=== PATIENT | female | born 1930 | race Caucasian/White ===

== ENCOUNTER 2017-01-23 09:53 | Emergency (ER) | payer OTHER ==
--- NOTE | 2017-01-23 11:20 | DIAGNOSTIC IMAGING REPORT ---
PROCEDURE: CT HEAD WITHOUT CONTRAST INDICATION: NAUSEA TECHNIQUE: Axial CT images were acquired through the head. Coronal and sagittal reformations were created. COMPARISON: Head CT 04/17/2011 FINDINGS: No intracranial hemorrhage or extraaxial fluid collections. Ventricles are normal in size, shape and position. There is no mass, mass effect or midline shift. Moderate periventricular small-vessel ischemic disease. The calvarium is intact. The paranasal sinuses and mastoid air cells are normally aerated. The extracranial soft tissues and orbits are normal. IMPRESSION: 1. No CT evidence of acute intracranial process. 2. Moderate periventricular small-vessel ischemic disease. 3. Findings discussed with Dr. Longoria at 11:[address] scans at this facility use dose modulation, iterative reconstruction, and/or weight-based dosing when appropriate to reduce radiation dose to as low as reasonably achievable.
--- NOTE | 2017-01-23 11:55 | ED CLINICAL REPORT ---
Clinical Report - Physicians/Mid Levels [facility] [address] [place] [address] 01/23/2017 9:58 Patient: CRISTINA BONILLA Time Seen: 10:05; initial patient contact. Arrived- By private vehicle. Historian- patient. HISTORY OF PRESENT ILLNESS Chief Complaint: HEADACHE. It is described as pressure. Located in the frontal region. No neck pain. Not located in the facial region. At its maximum, severity described as mild. When seen in the E.D., severity described as mild. Modifying factors: relieved by nothing. Not worsened by anything. The patient has had blurred vision (Chronic and stable from macular degeneration.). No preceding symptoms, photophobia, associated nausea, numbness or weakness. No vomiting. Similar symptoms previously: None. Recent medical care: Not recently seen/assessed. REVIEW OF SYSTEMS No fever, muscle aches, ear pain, sore throat or chest pain. No difficulty breathing, cough or skin rash. She has had sinus pressure. All systems otherwise negative, except as recorded above. PAST HISTORY GERD. ADDITIONAL SURGERIES: Cholecystectomy. Hysterectomy. Right hip ORIF. Medications: Albuterol Sulfate HFA Inhalation. PriLOSEC Oral. Allergies: Codine. Oxycodone HCl. SOCIAL HISTORY Former smoker. No alcohol use or drug use. ADDITIONAL NOTES The nursing notes have been reviewed. PHYSICAL EXAM Vital Signs: 01/23/2017 10:08 BP: 148/71. HR: 65. RR: 20. O2 saturation: 96%. Temp: 98 F. Pain level now: 11/18. Have been reviewed. Hypertensive. Heart rate normal. Respiratory rate normal. Temperature normal. Oxygen saturation normal. Appearance: Alert. No acute distress. Head: Tenderness present to percussion/palpation of the sinuses: moderate right and left frontal tenderness. Eyes: Pupils equal, round and reactive to light. Eyes normal inspection. ENT: Ears normal. Pharynx normal. Neck: Normal inspection. Neck supple. No lymphadenopathy. CVS: Normal heart rate and rhythm. Heart sounds normal. Respiratory: No respiratory distress. Breath sounds normal. Skin: Skin warm and dry. Normal skin color. No rash. Neuro: Oriented X 3. Alert. Mood/affect normal. Speech normal. Cranial nerves normal (as tested). No cerebellar findings. No motor deficit. No sensory deficit. LABS, X-RAYS, AND EKG CT Head: (1. No CT evidence of acute intracranial process. 2. Moderate periventricular small-vessel ischemic disease.). Head CT performed without contrast. The study was interpreted by the radiologist and discussed with the radiologist. Laboratory Tests: CBC w Diff: (BRIANA: 01/23/2017 10:30) ( [facility] [place] 11:24) Final results Test Result Flag Units (Reference) WHITE BLOOD COUNT 5.7 K/uL (4.5-11.5) RED BLOOD COUNT 4.21 M/uL (4.00-5.20) HEMOGLOBIN 12.1 gm/dL (12.0-16.0) HEMATOCRIT 36.7 % (36.0-46.0) MEAN CELL VOLUME 87 fL (80-100) MEAN CORPUSCULAR HGB 29 pg (26-34) MEAN CORPUSCULAR HGB CONC 33 g/dL (31-37) RED CELL DISTRIBUTION WIDTH 14.6 % (11.6-14.8) PLATELET COUNT 87 L K/uL (150-400) NEUTROPHIL % 50.5 % (50-75) LYMPH % 35.8 % (25-40) MONO % 10.0 % (3-14) EOSINOPHIL % 2.2 % (0-4) BASOPHIL % 1.5 % (0-2) CMP: (BRIANA: 01/23/2017 10:30) ( [facility] [place] 10:59) Final results Test Result Flag Units (Reference) GLUCOSE 89 mg/dL (70-110) BUN 12 mg/dL (7-18) CREATININE 0.7 mg/dL (0.6-1.3) Estimated GFR >60 mL/min Estimated GFR- >60 mL/min Note: Persistent reduction over 3 months in eGFR<60 mL/min/1.73 m2 defines CKD. Patients with eGFR values>=60 mL/min/1.73 m2 may also have CKD if evidence ofpersistent proteinuria. Additional information may be foundat www.[email or web address].org. SODIUM 140 mmol/L (136-145) POTASSIUM 4.2 mmol/L (3.5-5.1) CHLORIDE 105 mmol/L (98-107) CARBON DIOXIDE 29 mmol/L (21-32) CALCIUM 9.1 mg/dL (8.5-10.1) TOTAL PROTEIN 7.0 g/dL (6.4-8.2) ALBUMIN 3.5 g/dL (3.3-5.0) BILIRUBIN, TOTAL 0.7 mg/dL (0.0-1.0) ALKALINE PHOSPHATASE 103 U/L (46-116) AST (SGOT) 24 U/L (15-37) ALT (SGPT) 19 U/L (12-78) . PROGRESS AND PROCEDURES Disposition: Discharged home in good condition. Condition: good. CLINICAL IMPRESSION Acute frontal sinusitis INSTRUCTIONS Your Current Medications: CONTINUE TAKING THE FOLLOWING MEDICATIONS: Albuterol Sulfate HFA Inhalation. PriLOSEC Oral. Prescription Medications: Flonase nasal spray: 2 sprays to each nostril daily. Dispense one (1) unit. No refills. Substitution is permissible OTC Medications: Afrin nasal spray (Available over the counter): 1 spray to each nostril twice daily for 2 days, for congestion. Follow-up: Follow up with your doctor in about four days. Call for an appointment. Screening today revealed the patient's blood pressure to be in the hypertensive range. The patient should follow up with a primary care provider for blood pressure management. (Electronically signed by Rudy Lnogoria Dr. 01/24/2017 8:51)
--- NOTE | 2017-01-23 11:55 | ED NURSING NOTES ---
Clinical Report - Nurses [facility] [address] [place] [address] 01/23/2017 9:58 Patient: CRISTINA BONILLA TRIAGE Triage time 10:00. --10:05 Madyson Pardo R.N. Triage time 1000. Acuity: LEVEL 3. Chief Complaint: (Headache & dizziness, onset 2 days ago, sent by PCP. Negative FAST.). SEPSIS SCREEN: Sepsis Screen. Negative (no infection suspected/documented). VICKY COMA SCORE: Vicky Coma Scale: 15- eyes open spontaneously (4); best verbal response- oriented x 4 (5); best motor response- obeys commands (6). --10:19 Eddie Saucedo R.N. 10:08 01/23/17. BP: 148/71 (regular adult cuff) taken on the left arm, while lying. HR: 65. RR: 20. O2 saturation: 96% on room air. Temp: 98 F (oral). Pain level now: 4/10. Additional comments: headache. --10:19 Eddie Saucedo R.N. Weight: 74.8 kg stated. Height/Length: 67 inches Per Patient. BMI: 25.9. --10:18 Eddie Saucedo R.N. Medications PriLOSEC Oral. --10:13 Eddie Saucedo R.N. Albuterol Sulfate HFA Inhalation. --10:13 Eddie Saucedo R.N. Allergies Codine. Oxycodone HCl. --10:10 Eddie Saucedo R.N. History Arrived by private vehicle, and in wheelchair. Historian: patient and family. Accompanied by (caregiver). ( Pt normally walks with a 4 wheel wheeled walker). SOCIAL HX: Former smoker, end date 1986 (cigarette). No alcohol use or drug use. ABUSE ASSESSMENT: No report of abuse. --10:19 Eddie Saucedo R.N. PROBLEMS: GERD. --10:13 Eddie Saucedo R.N. ADDITIONAL SURGERIES: Cholecystectomy. Hysterectomy. Right hip ORIF. --10:13 Eddie Saucedo R.N. Interventions ID band on patient. To treatment room. --10:19 Eddie Saucedo R.N. NURSING PROGRESS NOTES 10:30 01/23/2017 Site #1 started via IV in the right antecubital space with an 20g angiocath, with aseptic technique and good blood return; one attempt. Blood drawn: rainbow set. Labeled in the presence of the patient and sent to the lab. Saline lock flushed with 10 mL saline. --10:42 Eddie Saucedo R.N. Patient gowned. Head of bed elevated. Reassurance given. Two patient identifiers checked. Call light placed in reach. Bed placed in lowest position. Brakes of bed on. Patient ready for evaluation- chart flagged. --10:42 Eddie Saucedo R.N. ( Pt in CT). --10:55 Eddie Saucedo R.N. 11:11 01/23/2017 Acetaminophen (APAP) PO Tablets 650 mg given. Allergies verified and confirmed 5 rights. --11:11 Eddie Saucedo R.N. DISPOSITION / DISCHARGE 12:00 01/23/2017 Site #1 removed upon discharge. Bandage applied. --12:00 Eddie Saucedo R.N. Departure time: 1202. Condition at departure: unchanged and stable. No learning barriers present. Discharge instructions provided and reviewed with the patient. Reviewed medication(s). Patient verbalized understanding. Written instructions provided in Micronesian. The patient was discharged by the physician. She was discharged home and accompanied by caregiver. She left the Emergency Department in a wheelchair and via private vehicle. Driving (caregiver). --12:02 Eddie Saucedo R.N. 11:52 01/23/17. BP: 150/65 (regular adult cuff) taken on the left arm, while sitting. HR: 67. RR: 20. O2 saturation: 98% on room air. Temp: 98 F (oral). Pain level now: 11/18. --12:02 Eddie Saucedo R.N. Locked/Released at 01/23/2017 12:31 by Eddie Saucedo R.N.
--- NOTE | 2017-01-23 11:55 | ED ORDER SUMMARY ---
..... Patient: CRISTINA BONILLA OrderSheet [facility] VisitID: [id number] [place] [address] 87y, F Registration Date/Time: 01/23/2017 ORDER SHEET Weight: 74.8 kg (stated) Allergies: Codine, Oxycodone HCl GENERAL ORDERS: CT Head wo Cont Urgent (10:42 01/23/2017 Deedee Pollard) (Ack 10:43 TBergley) (11:01 TBergley) CBC w Diff Urgent (10:42 01/23/2017 Deedee Pollard) (10:42 TBergley) CMP Urgent (10:42 01/23/2017 Deedee Pollard) (10:42 TBergley) UA-Culture if indicated Urgent (10:42 01/23/2017 Deedee Pollard) (Ack 10:43 TBergley) (12:30 Shital R.N.) (Cancelled: Unable to [id number] Tiffanyeck R.N.) MEDICATION ORDERS: Acetaminophen PO 650 mg (NOW) (10:42 01/23/2017 Deedee Pollard) (11:11 Tiffanyeck R.N.) IV FLUIDS: IV Saline Lock (10:42 01/23/2017 Deedee Pollard) (10:50 Shital R.N.) ORDER SHEET NOTES: [Electronically signed by Eddie Saucedo R.N. (12:31 01/23/2017)] [Electronically signed by Rudy Longoria Dr. (08:51 01/24/2017)] [Electronically locked/signed by Eddie Saucedo R.N. (12:31 01/23/2017)]
--- NOTE | 2017-01-23 11:55 | ED CLINICAL REPORT ---
Clinical Report - Physicians/Mid Levels [facility] [address] [place] [address] 01/23/2017 9:58 Patient: CRISTINA BONILLA Time Seen: 10:05; initial patient contact. Arrived- By private vehicle. Historian- patient. HISTORY OF PRESENT ILLNESS Chief Complaint: HEADACHE. It is described as pressure. Located in the frontal region. No neck pain. Not located in the facial region. At its maximum, severity described as mild. When seen in the E.D., severity described as mild. Modifying factors: relieved by nothing. Not worsened by anything. The patient has had blurred vision (Chronic and stable from macular degeneration.). No preceding symptoms, photophobia, associated nausea, numbness or weakness. No vomiting. Similar symptoms previously: None. Recent medical care: Not recently seen/assessed. REVIEW OF SYSTEMS No fever, muscle aches, ear pain, sore throat or chest pain. No difficulty breathing, cough or skin rash. She has had sinus pressure. All systems otherwise negative, except as recorded above. PAST HISTORY GERD. ADDITIONAL SURGERIES: Cholecystectomy. Hysterectomy. Right hip ORIF. Medications: Albuterol Sulfate HFA Inhalation. PriLOSEC Oral. Allergies: Codine. Oxycodone HCl. SOCIAL HISTORY Former smoker. No alcohol use or drug use. ADDITIONAL NOTES The nursing notes have been reviewed. PHYSICAL EXAM Vital Signs: 01/23/2017 10:08 BP: 148/71. HR: 65. RR: 20. O2 saturation: 96%. Temp: 98 F. Pain level now: 11/18. Have been reviewed. Hypertensive. Heart rate normal. Respiratory rate normal. Temperature normal. Oxygen saturation normal. Appearance: Alert. No acute distress. Head: Tenderness present to percussion/palpation of the sinuses: moderate right and left frontal tenderness. Eyes: Pupils equal, round and reactive to light. Eyes normal inspection. ENT: Ears normal. Pharynx normal. Neck: Normal inspection. Neck supple. No lymphadenopathy. CVS: Normal heart rate and rhythm. Heart sounds normal. Respiratory: No respiratory distress. Breath sounds normal. Skin: Skin warm and dry. Normal skin color. No rash. Neuro: Oriented X 3. Alert. Mood/affect normal. Speech normal. Cranial nerves normal (as tested). No cerebellar findings. No motor deficit. No sensory deficit. LABS, X-RAYS, AND EKG CT Head: (1. No CT evidence of acute intracranial process. 2. Moderate periventricular small-vessel ischemic disease.). Head CT performed without contrast. The study was interpreted by the radiologist and discussed with the radiologist. Laboratory Tests: CBC w Diff: (BRIANA: 01/23/2017 10:30) ( [facility] [place] 11:24) Final results Test Result Flag Units (Reference) WHITE BLOOD COUNT 5.7 K/uL (4.5-11.5) RED BLOOD COUNT 4.21 M/uL (4.00-5.20) HEMOGLOBIN 12.1 gm/dL (12.0-16.0) HEMATOCRIT 36.7 % (36.0-46.0) MEAN CELL VOLUME 87 fL (80-100) MEAN CORPUSCULAR HGB 29 pg (26-34) MEAN CORPUSCULAR HGB CONC 33 g/dL (31-37) RED CELL DISTRIBUTION WIDTH 14.6 % (11.6-14.8) PLATELET COUNT 87 L K/uL (150-400) NEUTROPHIL % 50.5 % (50-75) LYMPH % 35.8 % (25-40) MONO % 10.0 % (3-14) EOSINOPHIL % 2.2 % (0-4) BASOPHIL % 1.5 % (0-2) CMP: (BRIANA: 01/23/2017 10:30) [place] [facility] [place] 10:59[place] Final results Test Result Flag Units (Reference) GLUCOSE 89 mg/dL (70-110) BUN 12 mg/dL (7-18) CREATININE 0.7 mg/dL (0.6-1.3) Estimated GFR >60 mL/min Estimated GFR- >60 mL/min Note: Persistent reduction over 3 months in eGFR<60 mL/min/1.73 m2 defines CKD. Patients with eGFR values>=60 mL/min/1.73 m2 may also have CKD if evidence ofpersistent proteinuria. Additional information may be foundat www.kidney.org. SODIUM 140 mmol/L (136-145) POTASSIUM 4.2 mmol/L (3.5-5.1) CHLORIDE 105 mmol/L (98-107) CARBON DIOXIDE 29 mmol/L (21-32) CALCIUM 9.1 mg/dL (8.5-10.1) TOTAL PROTEIN 7.0 g/dL (6.4-8.2) ALBUMIN 3.5 g/dL (3.3-5.0) BILIRUBIN, TOTAL 0.7 mg/dL (0.0-1.0) ALKALINE PHOSPHATASE 103 U/L (46-116) AST (SGOT) 24 U/L (15-37) ALT (SGPT) 19 U/L (12-78) . PROGRESS AND PROCEDURES Disposition: Discharged home in good condition. Condition: good. CLINICAL IMPRESSION Acute frontal sinusitis INSTRUCTIONS Your Current Medications: CONTINUE TAKING THE FOLLOWING MEDICATIONS: Albuterol Sulfate HFA Inhalation. PriLOSEC Oral. Prescription Medications: Flonase nasal spray: 2 sprays to each nostril daily. Dispense one (1) unit. No refills. Substitution is permissible OTC Medications: Afrin nasal spray (Available over the counter): 1 spray to each nostril twice daily for 2 days, for congestion. Follow-up: Follow up with your doctor in about four days. Call for an appointment. Screening today revealed the patient's blood pressure to be in the hypertensive range. The patient should follow up with a primary care provider for blood pressure management. (Electronically signed by Rudy Longoria Dr. 01/24/2017 8:51)
--- NOTE | 2017-01-23 11:55 | ED ORDER SUMMARY ---
..... Patient: CRISTINA BONILLA OrderSheet [facility] VisitID: [id number] [place] [address] 87y, F Registration Date/Time: 01/23/2017 ORDER SHEET Weight: 74.8 kg (stated) Allergies: Codine, Oxycodone HCl GENERAL ORDERS: CT Head wo Cont Urgent (10:42 01/23/2017 Deedee Pollard) (Ack 10:43 TBergley) (11:01 TBergley) CBC w Diff Urgent (10:42 01/23/2017 Deedee Pollard) (10:42 TBergley) CMP Urgent (10:42 01/23/2017 Deedee Pollard) (10:42 TBergley) UA-Culture if indicated Urgent (10:42 01/23/2017 Deedee Pollard) (Ack 10:43 TBergley) (12:30 Shital R.N.) (Cancelled: Unable to [id number]:31 Tiffanyeck R.N.) MEDICATION ORDERS: Acetaminophen PO 650 mg (NOW) (10:42 01/23/2017 Deedee Pollard) (11:11 Tiffanyeck R.N.) IV FLUIDS: IV Saline Lock (10:42 01/23/2017 Deedee Pollard) (10:50 Shital R.N.) ORDER SHEET NOTES: [Electronically signed by Eddie Saucedo R.N. (12:31 01/23/2017)] [Electronically signed by Rudy Longoria Dr. (08:51 01/24/2017)] [Electronically locked/signed by Eddie Saucedo R.N. (12:31 01/23/2017)]
--- NOTE | 2017-01-24 08:51 | ED DISCHARGE INSTRUCTIONS ---
Patient: CRISTINA BONILLA General Instructions [facility] VisitID: [id number] [place] [address] 87y, F Registration Date/Time: 01/23/2017 Acute frontal sinusitis INSTRUCTIONS Your Current Medications: CONTINUE TAKING THE FOLLOWING MEDICATIONS: Albuterol Sulfate HFA Inhalation. PriLOSEC Oral. Prescription Medications: Flonase nasal spray: 2 sprays to each nostril daily. Dispense one (1) unit. No refills. Substitution is permissible OTC Medications: Afrin nasal spray (Available over the counter): 1 spray to each nostril twice daily for 2 days, for congestion. Follow-up: Follow up with your doctor in about four days. Call for an appointment. Screening today revealed the patient's blood pressure to be in the hypertensive range. The patient should follow up with a primary care provider for blood pressure management. ADDITIONAL INFORMATION Sinusitis [No Abx Tx] The sinuses are air-filled spaces within the bones of the face. They connect to the inside of the nose. Sinusitis is an inflammation of the tissue lining the sinus cavity. Sinus inflammation can occur during a cold or hay-fever (allergies to pollens and other particles in the air) and cause symptoms of sinus congestion and fullness and perhaps a low-grade fever. This does not require antibiotic treatment. Home Care: Drink plenty of water, hot tea, and other liquids to stay well hydrated. This thins the mucus and promotes sinus drainage. Apply heat to the painful areas of the face. Use a towel soaked in hot water. Or, porcelain technician the shower and direct the hot spray onto your face. This is a good way to inhale warm water vapor and get heat on your face at the same time. (Cover your mouth and nose with your hands so you can still breathe as you do this.) Use a vaporizer with products such as Vicks VapoRub (contains menthol) at night. Suck on peppermint, menthol or eucalyptus hard candies during the day. An expectorant containing guaifenesin (such as Robitussin), helps to thin the mucus and promote drainage from the sinuses. Twji-fkd-hdoxkts decongestants may be used unless a similar medicine was prescribed. Nasal sprays work the fastest. Use one that contains phenylephrine (Jared-synephrine, Sinex and others) or oxymetazoline (Afrin). First blow the nose gently to remove mucus, then apply the drops. Do not use these medicines more often than directed on the label or for more than three days or symptoms may worsen. You may also use tablets containing pseudoephedrine (Sudafed). Many sinus remedies combine ingredients, which may increase side effects. Read the labels or ask the pharmacist for help. NOTE: Persons with high blood pressure should not use decongestants. They can raise blood pressure. Antihistamines are useful if allergies are a cause of your sinusitis. The mildest one is chlorpheniramine (available without a prescription). The dose for adults is 8-12mg three times a day. [NOTE: Do not use chlorpheniramine if you have glaucoma or if you are a man with trouble urinating due to an enlarged prostate.] Claritin (loratidine) is an antihistamine that causes less drowsiness and is a good alternative for daytime use. When allergies are the cause for sinusitis, a saline nasal rinse may give relief. Saline nasal rinse reduces swelling and clears excess mucus. This allows sinuses to drain. Pre-packaged kits are available at most drug stores. These contain pre-mixed salt packets and an irrigation device. You may use acetaminophen (Tylenol) or ibuprofen (Motrin, Advil) to control pain, unless another pain medicine was prescribed. [ NOTE: If you have chronic liver or kidney disease or ever had a stomach ulcer, talk with your doctor before using these medicines.] (Aspirin should never be used in anyone under 18 years of age who is ill with a fever. It may cause severe liver damage.) Follow Up with your doctor or this facility in one week or as instructed by our staff if not improving. Get Prompt Medical Attention if any of the following occur: Green or yellow drainage from the nose or into the back of the throat (post-nasal drip) Worsening sinus pain or headache Stiff neck Unusual drowsiness, confusion or not acting like your normal self Swelling of the forehead or eyelids Vision problems including blurred or double vision Fever of 100.4F (38C) or higher, or as directed by your healthcare provider Seizure Fluticasone Propionate Nasal spray, solution What is this medicine? FLUTICASONE (floo TIK a sone) is a corticosteroid. It helps decrease inflammation in your nose. This medicine is used to treat the symptoms of allergies like sneezing, itching, and runny or stuffy nose. How should I use this medicine? This medicine is for use in the nose. Follow the directions on your prescription label. This medicine works best if used regularly. Do not use more often than directed. Make sure that you are using your nasal spray correctly. Ask you doctor or health care provider if you have any questions. Talk to your head paper tester regarding the use of this medicine in children. While this drug may be prescribed for children as young as 4 years old for selected conditions, precautions do apply. What side effects may I notice from receiving this medicine? Side effects that you should report to your doctor or health healthcare educator as soon as possible: allergic reactions like skin rash, itching or hives, swelling of the face, lips, or tongue changes in vision flu-like symptoms white patches or sores in the mouth or nose Side effects that usually do not require medical attention (report to your doctor or health healthcare educator if they continue or are bothersome): burning or irritation inside the nose or throat cough headache nosebleed unusual taste or smell What may interact with this medicine? ketoconazole metyrapone some medicines for HIV vaccines What if I miss a dose? If you miss a dose, use it as soon as you remember. If it is almost time for your next dose, use only that dose and continue with your regular schedule. Do not use double or extra doses. Where should I keep my medicine? Keep out of the reach of children. Store at room temperature between 15 and 30 degrees C (59 and 86 degrees F). Throw away any unused medicine after the expiration date. What should I tell my health care provider before I take this medicine? They need to know if you have any of these conditions: infection, like tuberculosis, herpes, or fungal infection recent surgery on nose or sinuses taking corticosteroid by mouth an unusual or allergic reaction to fluticasone, steroids, other medicines, foods, dyes, or preservatives or trying to get breast-feeding What should I watch for while using this medicine? Visit your doctor or health healthcare educator for regular checks on your progress. Some symptoms may improve within 12 hours after starting use. Check with your doctor or health healthcare educator if there is no improvement in your condition after 3 weeks of use. Do not come in contact with people who have chickenpox or the measles while you are taking this medicine. If you do, call your doctor right away. You have been given the following additional information: Sinusitis, No Abx Fluticasone Propionate Nasal spray, solution (Electronically signed by Rudy Longoria Dr. 01/24/2017 8:51)
--- NOTE | 2017-01-24 08:51 | ED MAR SUMMARY ---
..... Medication Administration Record [facility] [address] [place] [address] Patient: CRISTINA BONILLA Visit ID: [id number] 87y, F Weight: 74.8 kg Height/Length: 67 in BMI: 25.9 ALLERGIES: Codine, Oxycodone HCl Given 11:11 01/23/2017 Eddie Saucedo R.N. Medication Administered: ACETAMINOPHEN [PO] (APAP), Dose: 650 mg Tablets PO. Medication Ordered: Acetaminophen PO 650 mg (NOW).
--- NOTE | 2017-01-24 08:51 | ED MED RECONCILIATION SUMMARY ---
Patient: CRISTINA BONILLA Medication Reconciliation Report [facility] VisitID: [id number] [place] [address] 87y, F Registration Date/Time: 01/23/2017 Weight: 74.8 kg Height/Length: 67 in. BMI: 25.9 ALLERGIES: Codine, Oxycodone HCl The patient's Home Medications are listed below: CONTINUE TAKING THE FOLLOWING MEDICATIONS: Albuterol Sulfate HFA Inhalation PriLOSEC Oral The source(s) of the original Home Medication information: Not obtained. The following Medications were given to the patient in the Emergency Department: Acetaminophen [PO] PO 650 mg, administered: 01/23/2017 11:11:00 AM The following Medications were prescribed to the patient: Afrin nasal spray (Available over the counter): 1 spray to each nostril twice daily for 2 days, for congestion. -- Rudy Longoria Dr. Flonase nasal spray: 2 sprays to each nostril daily. Dispense one (1) unit. No refills. Substitution is permissible -- Rudy Longoria Dr.
--- NOTE | 2017-01-24 08:51 | ED MAR SUMMARY ---
..... Medication Administration Record [facility] [address] [place] [address] Patient: CRISTINA BONILLA Visit ID: [id number] 87y, F Weight: 74.8 kg Height/Length: 67 in BMI: 25.9 ALLERGIES: Codine, Oxycodone HCl Given 11:11 01/23/2017 Eddie Saucedo R.N. Medication Administered: ACETAMINOPHEN [PO] (APAP), Dose: 650 mg Tablets PO. Medication Ordered: Acetaminophen PO 650 mg (NOW).
--- NOTE | 2017-01-24 08:51 | ED MED RECONCILIATION SUMMARY ---
Patient: CRISTINA BONILLA Medication Reconciliation Report [facility] VisitID: [id number] [place] [address] 87y, F Registration Date/Time: 01/23/2017 Weight: 74.8 kg Height/Length: 67 in. BMI: 25.9 ALLERGIES: Codine, Oxycodone HCl The patient's Home Medications are listed below: CONTINUE TAKING THE FOLLOWING MEDICATIONS: Albuterol Sulfate HFA Inhalation PriLOSEC Oral The source(s) of the original Home Medication information: Not obtained. The following Medications were given to the patient in the Emergency Department: Acetaminophen [PO] PO 650 mg, administered: 01/23/2017 11:11:00 AM The following Medications were prescribed to the patient: Afrin nasal spray (Available over the counter): 1 spray to each nostril twice daily for 2 days, for congestion. -- Rudy Longoria Dr. Flonase nasal spray: 2 sprays to each nostril daily. Dispense one (1) unit. No refills. Substitution is permissible -- Rudy Longoria Dr.
--- NOTE | 2017-01-24 08:51 | ED DISCHARGE INSTRUCTIONS ---
Patient: CRISTINA BONILLA General Instructions [facility] VisitID: [id number] [place] [address] 87y, F Registration Date/Time: 01/23/2017 Acute frontal sinusitis INSTRUCTIONS Your Current Medications: CONTINUE TAKING THE FOLLOWING MEDICATIONS: Albuterol Sulfate HFA Inhalation. PriLOSEC Oral. Prescription Medications: Flonase nasal spray: 2 sprays to each nostril daily. Dispense one (1) unit. No refills. Substitution is permissible OTC Medications: Afrin nasal spray (Available over the counter): 1 spray to each nostril twice daily for 2 days, for congestion. Follow-up: Follow up with your doctor in about four days. Call for an appointment. Screening today revealed the patient's blood pressure to be in the hypertensive range. The patient should follow up with a primary care provider for blood pressure management. ADDITIONAL INFORMATION Sinusitis [No Abx Tx] The sinuses are air-filled spaces within the bones of the face. They connect to the inside of the nose. Sinusitis is an inflammation of the tissue lining the sinus cavity. Sinus inflammation can occur during a cold or hay-fever (allergies to pollens and other particles in the air) and cause symptoms of sinus congestion and fullness and perhaps a low-grade fever. This does not require antibiotic treatment. Home Care: Drink plenty of water, hot tea, and other liquids to stay well hydrated. This thins the mucus and promotes sinus drainage. Apply heat to the painful areas of the face. Use a towel soaked in hot water. Or, risk investigator the shower and direct the hot spray onto your face. This is a good way to inhale warm water vapor and get heat on your face at the same time. (Cover your mouth and nose with your hands so you can still breathe as you do this.) Use a vaporizer with products such as Vicks VapoRub (contains menthol) at night. Suck on peppermint, menthol or eucalyptus hard candies during the day. An expectorant containing guaifenesin (such as Robitussin), helps to thin the mucus and promote drainage from the sinuses. Xxum-zhw-jhoxwiy decongestants may be used unless a similar medicine was prescribed. Nasal sprays work the fastest. Use one that contains phenylephrine (Jared-synephrine, Sinex and others) or oxymetazoline (Afrin). First blow the nose gently to remove mucus, then apply the drops. Do not use these medicines more often than directed on the label or for more than three days or symptoms may worsen. You may also use tablets containing pseudoephedrine (Sudafed). Many sinus remedies combine ingredients, which may increase side effects. Read the labels or ask the pharmacist for help. NOTE: Persons with high blood pressure should not use decongestants. They can raise blood pressure. Antihistamines are useful if allergies are a cause of your sinusitis. The mildest one is chlorpheniramine (available without a prescription). The dose for adults is 8-12mg three times a day. [NOTE: Do not use chlorpheniramine if you have glaucoma or if you are a man with trouble urinating due to an enlarged prostate.] Claritin (loratidine) is an antihistamine that causes less drowsiness and is a good alternative for daytime use. When allergies are the cause for sinusitis, a saline nasal rinse may give relief. Saline nasal rinse reduces swelling and clears excess mucus. This allows sinuses to drain. Pre-packaged kits are available at most drug stores. These contain pre-mixed salt packets and an irrigation device. You may use acetaminophen (Tylenol) or ibuprofen (Motrin, Advil) to control pain, unless another pain medicine was prescribed. [ NOTE: If you have chronic liver or kidney disease or ever had a stomach ulcer, talk with your doctor before using these medicines.] (Aspirin should never be used in anyone under 18 years of age who is ill with a fever. It may cause severe liver damage.) Follow Up with your doctor or this facility in one week or as instructed by our staff if not improving. Get Prompt Medical Attention if any of the following occur: Green or yellow drainage from the nose or into the back of the throat (post-nasal drip) Worsening sinus pain or headache Stiff neck Unusual drowsiness, confusion or not acting like your normal self Swelling of the forehead or eyelids Vision problems including blurred or double vision Fever of 100.4F (38C) or higher, or as directed by your healthcare provider Seizure Fluticasone Propionate Nasal spray, solution What is this medicine? FLUTICASONE (floo TIK a sone) is a corticosteroid. It helps decrease inflammation in your nose. This medicine is used to treat the symptoms of allergies like sneezing, itching, and runny or stuffy nose. How should I use this medicine? This medicine is for use in the nose. Follow the directions on your prescription label. This medicine works best if used regularly. Do not use more often than directed. Make sure that you are using your nasal spray correctly. Ask you doctor or health care provider if you have any questions. Talk to your tennis ball coverer hand regarding the use of this medicine in children. While this drug may be prescribed for children as young as 4 years old for selected conditions, precautions do apply. What side effects may I notice from receiving this medicine? Side effects that you should report to your doctor or health adult caregiver as soon as possible: allergic reactions like skin rash, itching or hives, swelling of the face, lips, or tongue changes in vision flu-like symptoms white patches or sores in the mouth or nose Side effects that usually do not require medical attention (report to your doctor or health adult caregiver if they continue or are bothersome): burning or irritation inside the nose or throat cough headache nosebleed unusual taste or smell What may interact with this medicine? ketoconazole metyrapone some medicines for HIV vaccines What if I miss a dose? If you miss a dose, use it as soon as you remember. If it is almost time for your next dose, use only that dose and continue with your regular schedule. Do not use double or extra doses. Where should I keep my medicine? Keep out of the reach of children. Store at room temperature between 15 and 30 degrees C (59 and 86 degrees F). Throw away any unused medicine after the expiration date. What should I tell my health care provider before I take this medicine? They need to know if you have any of these conditions: infection, like tuberculosis, herpes, or fungal infection recent surgery on nose or sinuses taking corticosteroid by mouth an unusual or allergic reaction to fluticasone, steroids, other medicines, foods, dyes, or preservatives or trying to get breast-feeding What should I watch for while using this medicine? Visit your doctor or health adult caregiver for regular checks on your progress. Some symptoms may improve within 12 hours after starting use. Check with your doctor or health adult caregiver if there is no improvement in your condition after 3 weeks of use. Do not come in contact with people who have chickenpox or the measles while you are taking this medicine. If you do, call your doctor right away. You have been given the following additional information: Sinusitis, No Abx Fluticasone Propionate Nasal spray, solution (Electronically signed by Rudy Longoria Dr. 01/24/2017 8:51)
== END 2017-01-23 12:02 | disposition home or self-care (01) ==
LOC: ED SRH 09:53
DX: J01.10 Acute frontal sinusitis, unspecified (principal); Z79.51 Long term (current) use of inhaled steroids; Z79.899 Other long term (current) drug therapy; Z88.5 Allergy status to narcotic agent
CPT/HCPCS: 90100; 95059